=== PATIENT | male | born 1965 | race Caucasian/White ===

== ENCOUNTER 2017-09-23 06:49 | Emergency (ER) | payer BC ==
[2017-09-23 06:55] VITALS: RESP 16
[2017-09-23] MEDS ORDERED: SILVER NITRATE APPLICATOR 1 APPL TP ONE (06:59)
[2017-09-23] MEDS ORDERED: OXYMETAZOLINE 30 ML NASAL SPRAY ONE (06:59)
--- NOTE | 2017-09-23 07:13 | EDPHY ---
HPI/HX/ROS/PE/MDM Narrative: CHIEF COMPLAINT: "Worst nosebleed I've ever had" HPI: The patient is a 52 y/o male arriving with his complaining of a persistent nosebleed for the last hour. He gets occasional nosebleeds that are usually left-sided and he attributes to dryness. He has not been evaluated by an ENT for these episodes and has no history of prior nasal procedures or anticoagulant use. This morning he woke to bleeding from both nares and down his throat. He has been applying direct pressure since onset without control of the bleed so he came to the ED. He denies other excessive bleeding with small cuts or brushing his teeth, frequent bruising, or rash. REVIEW OF SYSTEMS: Aside from elements discussed in the HPI, a comprehensive 10-point review of systems was reviewed and is negative. PMH: Denies SOCIAL HISTORY: Works at [employer]. at bedside. relationship with [facility] PHYSICAL EXAM: General:Patient is alert, in no acute distress, sitting and leaning forward with nose clamp applied. ENT:Eyes are normal to inspection. ENT inspection shows dried blood in both nares. Neck: Normal inspection. Full range of motion. Respiratory:No respiratory distress. Breath sounds normal bilaterally. Cardiovascular: Regular rate and rhythm. Strong peripheral pulses. Normal cap refill. Abdomen:The abdomen is nontender to palpation. There are no peritoneal signs. Back: Normal to inspection. No tenderness to palpation. Skin: Normal color. No rash. Warm and dry. Extremities: Normal appearance. Full range of motion. Neuro: Oriented x3. Normal motor function. Normal sensory function. ED Course: This is a healthy 52 y/o male with history of occasional nosebleeds who presents with a 1-hour history of epistaxis uncontrolled by pressure. I do not suspect bleeding disorder by history. He has mild bleeding from both nares currently. Plan for control with Afrin and pressure initially and will progress to other interventions as needed. Basic labs ordered to evaluate H&H. Procedure: Epistaxis control. Indication: nosebleed not controlled by direct pressure. Risks, benefits, alternatives discussed with patient and consent obtained. The right and left nares contained dried blood, obscuring original site of bleed. The patient was treated with vasoconstriction. No packing used. Following the procedure the patient was re-examined and the bleeding was well controlled. The patient tolerated the procedure well. The procedure was performed by myself, Dr. Alex. Labs unremarkable. 0750: Reassessed patient. His epistaxis has resolved after initial Afrin spray. He plans to go directly over to see his ENT at [facility] upon discharge here. We have arranged an appointment for 9:30 today. Return precautions discussed. He is comfortable with plan for discharge. - Data Points Laboratory Results: Laboratory Results 09/23/17 07:25 09/23/17 09/23/17 09/23/17 07:25 07:25 07:25 WBC 7.42 10^3/uL 10^3/uL (3.80-9.50) RBC 4.74 10^6/uL 10^6/uL (4.40-6.38) Hgb 15.1 g/dL g/dL (13.7-17.5) Hct 43.7 % % (40.0-51.0) MCV 92.2 fL fL (81.5-99.8) MCH 31.9 pg pg (27.9-34.1) MCHC 34.6 g/dL g/dL (32.4-36.7) RDW 11.8 % % (11.5-15.2) Plt Count 195 10^3/uL 10^3/uL (150-400) MPV 10.4 fL fL (8.7-11.7) Neut % (Auto) 81.0 % H % (39.3-74.2) Lymph % (Auto) 12.5 % L % (15.0-45.0) [place] % (Auto) 4.9 % % (4.5-13.0) Eos % (Auto) 0.8 % % (0.6-7.6) Baso % (Auto) 0.4 % % (0.3-1.7) Nucleat RBC Rel Count 0.0 % % (0.0-0.2) Absolute Neuts (auto) 6.01 10^3/uL 10^3/uL (1.70-6.50) Absolute Lymphs (auto) 0.93 10^3/uL L 10^3/uL (1.00-3.00) Absolute Monos (auto) 0.36 10^3/uL 10^3/uL (0.30-0.80) Absolute Eos (auto) 0.06 10^3/uL 10^3/uL (0.03-0.40) Absolute Basos (auto) 0.03 10^3/uL 10^3/uL (0.02-0.10) Absolute Nucleated RBC 0.00 10^3/uL 10^3/uL (0-0.01) Immature Gran % 0.4 % % (0.0-1.1) Immature Gran # 0.03 10^3/uL 10^3/uL (0.00-0.10) PT 12.7 SEC SEC (12.0-15.0) INR 0.93 (0.83-1.16) APTT 26.0 SEC SEC (23.0-38.0) Sodium Pending Potassium Pending Chloride Pending Carbon Dioxide Pending Anion Gap Pending BUN Pending Creatinine Pending Estimated GFR Pending Glucose Pending Calcium Pending General Time Seen by Provider: 09/23/17 06:59 Initial Vital Signs: Initial Vital Signs Heart Rate 82 09/23/17 06:51 Respiratory Rate 16 09/23/17 06:51 Blood Pressure 136/80 H 09/23/17 06:51 O2 Sat (%) 99 09/23/17 06:51 O2 Delivery Mode Room Air Allergies/Adverse Reactions: No Known Allergies Allergy (Unverified 09/23/17 06:51) Home Medications: Medication Instructions Recorded NK [No Known Home Meds] 09/23/17 Departure - Departure Disposition: Home, Routine, Self-Care Clinical Impression: Epistaxis Condition: Good Instructions: Nosebleed (ED) Additional Instructions: 1. Go directly to [facility] office. You have an appointment at 9:30 today. 2. Should a nosebleed recur, apply pressure for several minutes to control the bleeding. 3. Return to the ED for profuse and uncontrolled bleeding, lightheadedness, fainting, or other signs of abnormal bleeding. Referrals: Ignacio Jade MD [Medical Doctor] - As per Instructions Report Scribed for: Juan Alex Report Scribed by: Kate Mcguire Date of Report: 09/23/17 Time of Report: 07:20 Physician Review and Approval Statement: Portions of this note were transcribed by an ED scribe. I personally performed the history, physical exam, and medical decision making; and confirm the accuracy of the information in the transcribed note.
[2017-09-23 07:37] LABS: PLATELET COUNT 195 10^3/uL (150-400)
[2017-09-23 07:50] LABS: INR 0.93 (0.83-1.16); PROTIME(PATIENT) 12.7 SEC (12.0-15.0)
[2017-09-23 08:21] VITALS: BP 123/75; PULSE 65; TEMP 98.2; O2SAT 98
== END 2017-09-23 08:20 | disposition home or self-care (01) ==
DX: R04.0 Epistaxis (principal)